=== PATIENT | female | born 2000 | race Two or more races ===

== ENCOUNTER 2023-01-25 16:53 | Emergency (ER) | payer OTHER, SELFPAY ==
[2023-01-25 16:57] VITALS: BP 132/86; PULSE 73; RESP 16; TEMP 37.4; BMI 39.0
--- NOTE | 2023-01-25 17:22 | XR_ITS ---
The [address] [address] Patient Name: CRYSTAL MUÑOZ MRN: [id number] date: 2000 Sex: F Assigned Patient Location: ER Current Patient Location: ER Accession/Order Number: [id number] Exam Date: 01/25/2023 17:35 Report Date: 01/25/2023 17:51 At the request of: AYSHA ELMORE Procedure: XR acute abdomen series EXAMINATION: XR acute abdomen series HISTORY: Abdominal pain COMPARISON: None. TECHNIQUE: PA chest and 3 views of the abdomen FINDINGS: The lung parenchyma is free of consolidation or infiltrate. No pneumothorax or pleural effusion. The cardiac, mediastinal and hilar contours are normal. The bowel gas pattern is nonobstructed. No visualized free intraperitoneal air or intra-abdominal calcification. The visualized osseous structures exhibit no gross abnormality. IMPRESSION: No visualized abnormality Electronically authenticated by: BLANCA POTTER Date: 01/25/2023 17:51
--- NOTE | 2023-01-25 17:23 | ED.ABDPAIN1 ---
HPI - Abdominal Pain General Chief Complaint: Abdominal Pain Stated Complaint: ABDOMINAL PAIN Time Seen by Provider: 01/25/23 17:02 Source: patient Mode of arrival: walk-in Limitations: no limitations History of Present Illness HPI narrative: patient is a 22-year-old female who presents to the emergency department for the evaluation of bilateral upper back and abdominal pain that is coming and going over the last several days. Patient states last week she had a sore throat with one day of vomiting and diarrhea. She states those symptoms have resolved but four days ago she developed cramping pain in the upper abdomen and upper back. Pain is not worse on one side or the other, she reports epigastric discomfort. She has no pain or symptoms at this time. She has had no persistent vomiting or diarrhea. She had a cough earlier in the week that has now resolved. She has had no fevers, chills, congestion. She is not concerned for . She has had no urinary symptoms. She has not taken any medications prior to arrival. Related Data Previous Rx's Medication Instructions Recorded cephalexin 500 mg capsule 500 mg PO Q8H 5 days #15 caps 01/25/23 ondansetron 4 mg disintegrating 4 mg PO Q6H PRN nausea and 01/25/23 tablet vomiting #12 tabs sucralfate 1 gram tablet (Carafate) 1 g PO Q6H PRN abdominal pain #12 01/25/23 tabs Allergies Allergy/AdvReac Type Severity Reaction Status Date / Time No Known Drug Allergies Allergy Verified 01/25/23 17:02 PFSH PFSH Social History Smoking status: Never smoker Exam Constitutional Vital Signs - 24 hr 01/25/23 16:57 Temperature 99.3 F Pulse Rate [Monitor] 73 Respiratory Rate 16 Blood Pressure [Left Arm] 132/86 H Course Vital Signs Vital signs: Vital Signs Temperature 99.3 F 01/25/23 16:57 Pulse Rate 73 01/25/23 16:57 Respiratory Rate 16 01/25/23 16:57 Blood Pressure 132/86 H 01/25/23 16:57 Temperature 99.3 F 01/25/23 16:57 Pulse Rate 73 01/25/23 16:57 Respiratory Rate 16 01/25/23 16:57 Blood Pressure 132/86 H 01/25/23 16:57 MDM - Abdominal Pain MDM Narrative Medical decision making narrative: abdomen is soft and benign in the emergency department and the patient has no focal medical complaints, she denies any abdominal pain at this time. Urine specimen shows an early urinary tract infection, test is negative and strep screen is negative. Abdominal x-rays are unremarkable. Patient discharged home with Carafate, Zofran, Keflex. Follow-up with PCP and return to the Emergency Room if symptoms change or worsen. Medical Records Attestation: I reviewed the patient's medical records. Lab Data Attestation: I reviewed the patient's lab results. Labs: Lab Results 01/25/23 Range/Units 17:05 Urine Color Lt. yellow (YELLOW) Urine Clarity Slightly cloudy A (CLEAR) Urine pH 6.5 (5.0-9.0) Ur Specific [place] 1.020 (1.005-1.025) Urine Protein Negative (NEG/TRACE) mg/dL Urine Glucose (UA) Negative (NEGATIVE) mg/dL Urine Ketones Trace A (NEGATIVE) mg/dL Urine Occult Blood Negative (NEGATIVE) Urine Nitrite Negative (NEGATIVE) Urine Bilirubin Negative (NEGATIVE) Urine Urobilinogen 1.0 (0.2-1.0) EU/dL Ur Leukocyte Esterase Small A (NEGATIVE) Urine RBC 0-2 (0-2) #/HPF Urine WBC 0-2 A (NONE SEEN) #/HPF Ur Squamous Epith Cells Moderate A (NONE/RARE) #/LPF Urine Crystals None seen (None Seen) #/HPF Urine Bacteria Trace A (NONE SEEN) #/HPF Urine Casts None seen (NONE SEEN) #/LPF Urine Mucus Moderate A (NONE SEEN) Ur Culture Indicated? No Urine HCG, Qual Negative (NEGATIVE) Streptococcus Screen Negative Imaging Data Abdominal x-ray: Attestation: I have reviewed the pertinent imaging results. Radiologist's impression: Procedure: XR acute abdomen series EXAMINATION: XR acute abdomen series HISTORY: Abdominal pain COMPARISON: None. TECHNIQUE: PA chest and 3 views of the abdomen FINDINGS: The lung parenchyma is free of consolidation or infiltrate. No pneumothorax or pleural effusion. The cardiac, mediastinal and hilar contours are normal. The bowel gas pattern is nonobstructed. No visualized free intraperitoneal air or intra-abdominal calcification. The visualized osseous structures exhibit no gross abnormality. IMPRESSION: No visualized abnormality Electronically authenticated by: BLANCA POTTER Date: 01/25/2023 17:51 Discharge Plan Discharge Chief Complaint: Abdominal Pain Clinical Impression: UTI (urinary tract infection), Abdominal pain Patient Disposition: Home, Self-Care Time of Disposition Decision: 18:08 Condition: Good Prescriptions / Home Meds: New cephalexin 500 mg capsule 500 mg PO Q8H 5 Days Qty: 15 0RF sucralfate [Carafate] 1 gram tablet 1 g PO Q6H PRN (Reason: abdominal pain) Qty: 12 0RF ondansetron 4 mg tablet,disintegrating 4 mg PO Q6H PRN (Reason: nausea and vomiting) Qty: 12 0RF Instructions: Urinary Tract Infection in Women (ED) Stand Alone Forms: Portal Instructions Referrals: Physician,Non-Staff, MD [Primary Care Provider] - 1 week
[2023-01-25 17:25] LABS: Bilirubin Urine NEGATIVE (NEGATIVE); Blood Urine NEGATIVE (NEGATIVE); Color Urine LT. YELLOW (YELLOW); Glucose Urine UA NEGATIVE (NEGATIVE); Ketones Urine TRACE mg/dL (NEGATIVE); Leukocyte Esterase Urine SMALL (NEGATIVE); Nitrite Urine NEGATIVE (NEGATIVE); Protein Urine NEGATIVE (NEG/TRACE); pH Urine 6.5 (5.0-9.0)
[2023-01-25 17:27] LABS: HCG Qualitative Urine* NEGATIVE (NEGATIVE)
[2023-01-25 17:28] LABS: Urine Microscopic Indicated YES
[2023-01-25 17:33] LABS: Internal Control Within Normal Limits; Strep A Antigen Screen Negative
[2023-01-25 17:39] LABS: Clarity Urine SLIGHTLY CLOUDY (CLEAR); RBC Urine 0-2 #/HPF (0-2); WBC Urine 0-2 #/HPF (NONE SEEN)
[2023-01-25 17:40] LABS: Bacteria Urine TRACE #/HPF (NONE SEEN); Cast Seen? NONE SEEN #/LPF (NONE SEEN); Crystals Seen? None Seen #/HPF (None Seen); Mucus Urine MODERATE (NONE SEEN); Squamous Epithelial Cell Urine MODERATE #/LPF (NONE/RARE); Urine Culture Indicated NO
[2023-01-25] MEDS: KETOROLAC TROMETHAMINE 10 MG TABLET PO (17:59)
[2023-01-25] MEDS: SUCRALFATE 1 GM TABLET PO (17:59)
[2023-01-25] MEDS: HYOSCYAMINE SULFATE 0.125 MG TAB.SUBL SL (17:59)
[2023-01-25] MEDS: CEPHALEXIN 500 MG CAPSULE PO (18:32)
== END 2023-01-25 18:34 | disposition home or self-care (01) ==
PROVIDERS: Physician Assistant; Emergency Provider Emergency Medicine
DX: R10.9 Unspecified abdominal pain (principal); N39.0 Urinary tract infection, site not specified
CPT/HCPCS: 74022; 81003; 81015; 84703; 87070; 87880; 99285